=== PATIENT | female | born 2000 | race Caucasian/White ===

== ENCOUNTER 2022-03-20 19:55 | Emergency (ER) | payer BC, SELFPAY ==
[2022-03-20 19:55] VITALS: BP 139/91; PULSE 86; RESP 18; TEMP 36.4; O2SAT 99; BMI 22.8
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
[2022-03-20] MEDS: Ibuprofen 600 MG Tablet PO (20:40)
--- NOTE | 2022-03-20 20:57 | RAD_ITS ---
STUDY: X-RAY - CERVICAL SPINE REASON FOR EXAM: Female, 21 years old. neck injury TECHNIQUE: 3 view(s) of the cervical spine were obtained. COMPARISON: None FINDINGS: Normal anterior atlantoaxial articulation. Normal odontoid process. Normal cervical lordosis. Normal vertebral bodies and endplates. Normal disc space heights. Normal visualized intervertebral neuroforamina. The soft tissue structures are unremarkable. RAD/Cerv Spine 2 or 3 Views IMPRESSION: Normal x-ray examination of the visualized cervical spine. Electronically Signed: David Hauser MD at 21:14 EDT ,
[2022-03-20 21:51] VITALS: BP 133/90; PULSE 90; RESP 18; O2SAT 96
== END 2022-03-20 21:51 | disposition home or self-care (01) ==
PROVIDERS: Emergency Provider Emergency Medicine; Visit Provider Emergency Medicine
DX: S16.1XXA Strain of muscle, fascia and tendon at neck level, initial encounter (principal); V89.2XXA Person injured in unspecified motor-vehicle accident, traffic, initial encounter
CPT/HCPCS: 72040; 99285; A4216

== ENCOUNTER 2025-05-12 13:55 | Emergency (ER) | payer BC, SELFPAY ==
[2025-05-12 13:56] VITALS: BP 135/91; PULSE 86; RESP 16; TEMP 36.6; O2SAT 100; BMI 22.2
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
--- NOTE | 2025-05-12 16:15 | CT_ITS ---
PROCEDURE: CT SPINE CERVICAL WITHOUT CONTRAST 05/12/2025 REASON FOR EXAM: INJURY/PAIN TECHNIQUE: CT SPINE CERVICAL WITHOUT CONTRAST. Coronal and Sagittal reconstruction series were provided. One or more dose reduction techniques were used (e.g., Automated exposure control, adjustment of the mA and/or kV according to patient size, use of iterative reconstruction technique. RADIATION DOSE SUMMARY: DLP: 1076.08 mGycm COMPARISON: None. FINDINGS: No acute fracture or subluxation. Straightening of the cervical lordosis may be positional or related to muscle spasm. No significant degenerative changes are present. No prevertebral soft tissue swelling. Visualized lung apices are clear. CT/Spine Cervical without Contras IMPRESSION: No acute fracture or subluxation. Straightening of the cervical lordosis can be seen with muscle spasm. Reading Location: [id number]
--- NOTE | 2025-05-12 16:15 | CT_ITS ---
PROCEDURE: BRAIN/HEAD WITHOUT CONTRAST 05/12/2025 REASON FOR EXAM: INJURY/PAIN TECHNIQUE: BRAIN/HEAD WITHOUT CONTRAST Coronal and Sagittal reconstruction series were provided. One or more dose reduction techniques were used (e.g., Automated exposure control, adjustment of the mA and/or kV according to patient size, use of iterative reconstruction technique. COMPARISON: None available. FINDINGS: There is no extra-axial or intra-axial intracranial hemorrhage. No mass effect or midline shift is seen. The ventricles, sulci, and cisterns are normal in size and shape for the patient's age. There is normal vance-white matter differentiation. The posterior fossa is grossly unremarkable. The skull is unremarkable. Visualized paranasal sinuses are clear. The mastoid air cells show normal translucency. CT/Brain/Head without Contrast IMPRESSION: No intracranial hemorrhage. No mass effect or midline shift. Reading [facility]
== END 2025-05-12 17:24 | disposition home or self-care (01) ==
PROVIDERS: Emergency Provider Emergency Medicine; Visit Provider Emergency Medicine
DX: S06.0X9A Concussion with loss of consciousness of unspecified duration, initial encounter (principal); S16.1XXA Strain of muscle, fascia and tendon at neck level, initial encounter; V86.99XA Unspecified occupant of other special all-terrain or other off-road motor vehicle injured in nontraffic accident, initial encounter
CPT/HCPCS: 70450; 72125; 99282